=== PATIENT | male | born 1995 | race Two or more races ===

== ENCOUNTER 2020-12-02 03:43 | Emergency (ER) | payer MEDICAID ==
[~2020-12-02] VITALS: Ht 182.9 cm; Wt 95.3 kg
[2020-12-02] MEDS ORDERED: MORPHINE SULFATE 4 MG/ML SYR/VIAL IV ONE (06:45)
[2020-12-02] MEDS ORDERED: ONDANSETRON HCL 4 MG/2 ML VIAL IV ONE (06:45)
[2020-12-02] MEDS ORDERED: cefTRIAXone 1GM/50ML D5W 50 ML IV ONE (10:00)
[2020-12-02 10:33] VITALS: BP 111/60
== END 2020-12-02 10:55 | disposition home or self-care (01) ==
LOC: ER 03:44
DX: S02.85XA Fracture of orbit, unspecified, initial encounter for closed fracture (principal); S02.2XXA Fracture of nasal bones, initial encounter for closed fracture; S09.8XXA Other specified injuries of head, initial encounter; Y08.89XA Assault by other specified means, initial encounter; Y93.89 Activity, other specified; Y92.89 Other specified places as the place of occurrence of the external cause; Y99.8 Other external cause status
CPT/HCPCS: 70450; 70486; 71045; 72125; 96365; 96375; 99285; J0696; J2270; J2405

== ENCOUNTER 2025-05-09 02:22 | Emergency (ER) | payer MEDICAID, OTHER ==
[~2025-05-09] VITALS: Ht 180.3 cm; Wt 118.5 kg
[2025-05-09 02:31] VITALS: BP 141/100; PULSE 61; RESP 18; TEMP 97.7; O2SAT 99
[2025-05-09] MEDS ORDERED: AMOX875T4 PO (02:35)
[2025-05-09] MEDS ORDERED: IBUP-1456 PO (02:35)
--- NOTE | 2025-05-09 02:35 | ED.PDOC ---
Eye-HPI HPI Comments 29 year old male presents to ER with complaints of toothache x1 day. Patient reports he has been experiencing left lower molar toothache pain x1 day. He rates his current left lower molar toothache pain a /10 and states he has been taking ibuprofen for his pain without relief. Patient presents to ER ambulatory on arrival, with steady gait, in no distress and states he is following up with a dentist today. Denies fever, body aches, headache, facial swelling/skin changes or any further symptoms/complaints Chief Complaint: Tooth Pain Time Seen by MD: 02:28 Primary Care Provider: UNKNOWN Reviewed Notes: Nurses Notes, Medications, Allergies Allergies: Coded Allergies: NO KNOWN ALLERGIES (Unverified , 01/19/10) Home Meds Active Scripts Ibuprofen (Ibuprofen) 800 Mg Tab, 1 TAB PO TID PRN, #30 TAB 0 Refills Prov:CHAI MCCLELLAN 05/09/25 Amoxicillin & Pot Clavulanate (Amoxicillin/Potassium Cla) 875 Mg Tab, 1 TAB PO BID for 7 Days, #14 TAB 0 Refills Prov:CHAI MCCLELLAN 05/09/25 Information Source: Patient Mode of Arrival: Ambulatory Past Medical History PAST MEDICAL HISTORY: Denies Surgical History: Denies all surgeries Family History Family History: Unknown Social History Smoker: Non-Smoker Alcohol: Denies ETOH Use Drugs: Denies Drug Use Lives In: Home Constitutional: denies: chills, diaphoresis, fatigue, fever, malaise, sweats, weakness, others EENTM: reports: others (As stated in HPI) Respiratory: denies: cough, hemoptysis, orthopnea, SOB at rest, shortness of breath, SOB with excertion, stridor, wheezing, others Cardiovascular: denies: chest pain, dizzy spells, diaphoresis, Dyspnea on exertion, edema, irregular heart beat, left arm pain, lightheadedness, palpitations, PND, syncope, others Gastrointestinal: denies: abdomen distended, abdominal pain, blood streaked bowels, constipated, diarrhea, dysphagia, difficulty swallowing, hematemesis, melena, nausea, poor appetite, poor fluid intake, rectal bleeding, rectal pain, vomiting, others Genitourinary: denies: burning, dysuria, flank pain, frequency, hematuria, incontinence, penile discharge, penile sore, pain, testicle pain, testicle swelling, urgency, others Neurological: denies: dizziness, fainting, headache, left sided numbness, left sided weakness, numbness, paresthesia, pre-existing deficit, right sided numbness, right sided weakness, seizure, speech problems, tingling, tremors, weakness, others Musculoskeletal: denies: back pain, gout, joint pain, joint swelling, muscle pain, muscle stiffness, neck pain, others Integumetry: denies: bruises, change in color, change in hair/nails, dryness, laceration, lesions, lumps, rash, wounds, others Allergic/Immunocompromised: denies: Difficulty Healing, Frequent Infections, Hives, Itching, others Hematologic/Lymphatic: denies: anemia, blood clots, easy bleeding, easy bruising, swollen glands, others Endocrine: denies: excessive hunger, excessive sweating, excessive thirst, excessive urination, flushing, intolerance to cold, intolerance to heat, unexplained weight gain, unexplained weight loss, others Psychiatric: denies: anxiety, bipolar disorder, depression, hopeless, panic disorder, schizophrenia, sleepless, suicidal, others Physical Exam General Appearance: No Apparent Distress, Obese HEENT: PERRL/EOMI, Pharynx Normal, Other (Broken left lower 2nd molar tooth noted with associated gum swelling/erythema, no bleeding/drainage noted. No facial swelling/skin changes noted) Neck: Full Range of Motion, Non-Tender, Normal Respiratory: Chest Non-Tender, Lungs Clear, No Accessory Muscle Use, No Respiratory Distress, Normal Breath Sounds Cardiovascular: No Murmur, No Gallop, Regular Rate/Rhythm Breast Exam: Deferred Gastrointestinal: NOT DONE Genitalia: Deferred Pelvic: Deferred Rectal: Deferred Extremities: Normal capillary refill, Normal range of motion Neurologic: Alert, customer service agent II-XII nml as Tested, No Motor Deficits, Normal Affect, Normal Mood, No Sensory Deficits Cerebellar Function: Normal Reflexes: Normal Skin: Dry, Normal Color, Warm Lymphatic: No Adenopathy Was a procedure done? Was a procedure done?: No Sedation Sedation?: No EENT DIFF Eye: N/A Mouth: Thrush, Other (Dental abscess, Nakul's angina) X-Ray, Labs, Meds, VS Vital Signs Date Time Temp Pulse Resp B/P (MAP) Pulse Ox O2 Delivery O2 Flow Rate FiO2 05/09/25 02:31 Room Air* 0 21 05/09/25 02:31 97.7 61 18 141/100 (114) 99 97.7 05/09/25 02:23 97.7 61 16 141/100 99 97.7 Hurricaine spray ordered, patient educated on proper use/dosage Advised to f/u with PCP and dentist in 1-2 days Patient verbalized understanding and agreeable with current plan of care Advised to return to ER immediately if symptoms worsen Time of 1ST Reevaluation: 02:28 Reevaluation 1ST: N/A Patient Education/Counseling: Diagnosis, Treatment, Prognosis, Need For Follow Up Family Education/Counseling: No Family Present SEPSIS Sepsis Screen Date sepsis recognized/suspect: May 09, 2025 Time Sepsis recognized/suspect: 223 Recent Procedure: No On Antibiotic Therapy: No Respiratory Rate >20: No Heart Rate >90: No Temp<36 C (96.8 F) or >38.3 C: No SBP <90 or MAP <65 mmHG: No New Acute Mental Status Change: No Is the patient on CPAP, BIPAP,: No Physician Orders Benzocaine (Dental) [place] (Hurricaine Sp (05/09/25 02:45) Vital Signs Date Time Temp Pulse Resp B/P (MAP) Pulse Ox O2 Delivery O2 Flow Rate FiO2 05/09/25 02:31 Room Air* 0 21 05/09/25 02:31 97.7 61 18 141/100 (114) 99 97.7 05/09/25 02:23 97.7 61 16 141/100 99 97.7 Departure 1 Departure Time of Disposition: 02:33 Impression: Primary Impression: Broken tooth Qualified Codes: S02.5XXA - Fracture of tooth (traumatic), initial encounter for closed fracture Additional Impression: Dental infection Disposition: 01 HOME / SELF CARE / HOMELESS Condition: Stable e-Prescriptions Ibuprofen (Ibuprofen) 800 Mg Tab 1 TAB PO TID PRN, #30 TAB 0 Refills Prov: CHAI MCCLELLAN 05/09/25 Amoxicillin & Pot Clavulanate (Amoxicillin/Potassium Cla) 875 Mg Tab 1 TAB PO BID for 7 Days, #14 TAB 0 Refills Prov: CHAI MCCLELLAN 05/09/25 Discharged With: Self Critical Care Note Critical Care Time?: No Stability Stability form required: No Heart Score Heart Score: Heart Score Response (Comments) Value History N/A 0 EKG N/A 0 Age N/A 0 Risk Factors N/A 0 Troponin N/A 0 Total 0 CHAI MCCLELLAN May 09, 2025 02:35
[2025-05-09] MEDS: BENZOCAINE (DENTAL) 20 % SPRAY 60ML MT ONE (02:47)
== END 2025-05-09 02:50 | disposition home or self-care (01) ==
LOC: ER 02:22
DX: S02.5XXA Fracture of tooth (traumatic), initial encounter for closed fracture (principal); K04.7 Periapical abscess without sinus; X58.XXXA Exposure to other specified factors, initial encounter; Y93.89 Activity, other specified; Y92.89 Other specified places as the place of occurrence of the external cause; Y99.8 Other external cause status